=== PATIENT | female | born 1975 | race Caucasian/White ===

== ENCOUNTER 2020-07-28 17:20 | Emergency (ER) | payer OTHER, SELFPAY ==
[2020-07-28 17:38] VITALS: BP 124/87; PULSE 91; RESP 18; TEMP 37.4; O2SAT 100
[2020-07-28 17:41] VITALS: BP 124/87; PULSE 91; RESP 18; TEMP 37.4; O2SAT 100
--- NOTE | 2020-07-28 17:51 | ED.FEMALEGU ---
HPI - Female Genitourinary General Chief complaint: Urogenital-Female Stated complaint: UTI Source: patient and RN notes reviewed Limitations: no limitations History of Present Illness HPI Narrative: This is a 44-year-old female that presented to urgent care with complaints of painful urination, hematuria, abdominal pain ,urgency and frequency. According to patient she recently had a urinary tract infection back in May. She also notes that she feels as if her bladder is not emptying. Patient will discharge home with Macrobid. She was motivated to follow-up with her primary care physician with the possible urology consult due to frequent urinary tract infections. The patient denies SOB, CP, palpitation, extremity numbness, lightheadedness, dizziness, constipation, diarrhea, chills, or fever. MD elicited complaint: dysuria and UTI Related Data Home Medications Medication Instructions Recorded Confirmed Vyvanse 70 mg PO DAILY 07/28/20 07/28/20 trazodone 150 mg PO DAILY 07/28/20 07/28/20 Allergies Allergy/AdvReac Type Severity Reaction Status Date / Time codeine Allergy Intermediate Nausea and Verified 07/28/20 17:40 Vomiting benzoyl peroxide AdvReac Mild Rash Verified 07/28/20 17:41 morphine AdvReac Mild Other Verified 07/28/20 17:40 Review of Systems Review of Systems: Narrative: A 14 organ system Review of Systems was performed and pertinent positives included in the HPI, otherwise remaining ROS is negative. [facility] Family History Family History Other Family history non-contributory Exam Narrative: Exam Narrative: GENERAL: This is a well-nourished, well-developed patient, in no apparent distress. HEAD: normocephalic, atraumatic. EYES: PERRL. Sclera clear/white. Vision is grossly intact. EARS: External ears normal, auditory canals clear and without drainage, TMs normal without perforation. Hearing grossly intact. NOSE: External nose normal with no obvious nasal discharge, nares without redness, no rhinorrhea. THROAT: Mucous membranes moist, posterior pharynx clear. NECK: Neck supple, non-tender without lymphadenopathy, masses or thyromegaly. CARDIOVASCULAR: Regular rate and rhythm without murmurs, gallops, or rubs. RESPIRATORY: Clear to auscultation. Breath sounds equal bilaterally. No wheezes, rales, or rhonchi. GASTROINTESTINAL: Abdomen soft, mid lower abd tender with palpation, nondistended. Bowel sounds are active. No hepato-splenomegaly, or palpable masses. No guarding. SKIN: warm, intact with no suspicious lesions or rash, good texture and turgor. NEURO: awake, alert, and oriented to person, place and time. There were no obvious focal neurologic abnormalities. Steady gait EXTREMITIES: Normal range of motion. No edema. No calf tenderness. Negative Homans sign bilaterally. BACK: Nontender without deformity or crepitance. No flank tenderness. Course Course Emergency Course: Discharge home with Macrbid and phenazopyridine. UA culture pending Vital Signs Vital signs: Vital Signs Temperature 99.3 F 07/28/20 17:38 Pulse Rate 91 07/28/20 17:38 Respiratory Rate 18 07/28/20 17:38 Blood Pressure 124/87 07/28/20 17:38 Pulse Oximetry 100 07/28/20 17:38 Temperature 99.3 F 07/28/20 17:41 Pulse Rate 91 07/28/20 17:41 Respiratory Rate 18 07/28/20 17:41 Blood Pressure 124/87 07/28/20 17:41 Pulse Oximetry 100 07/28/20 17:41 MDM - Female Genitourinary Differential Diagnosis Differential diagnosis: Likely urinary tract infection, vaginitis and cystitis Lab Data Attestation: I reviewed the patient's lab results. Labs: Urine Glucose Negative Reference Range: Negative Urine Glucose Negative Reference Range: Negative Urine Bilirubin Negative
== END 2020-07-28 17:57 | disposition home or self-care (01) ==
PROVIDERS: Emergency Provider Nurse Practitioner
DX: N30.01 Acute cystitis with hematuria (principal)
CPT/HCPCS: 81003; 87086; 99213; G0463